=== PATIENT | female | born 1995 | race Caucasian/White ===

== ENCOUNTER 2021-01-23 17:37 | Outpatient (CLI) | payer OTHER, SELFPAY | END 2021-01-23 17:38 | disposition home or self-care (01) | LOC: ANHCOVIDVC 17:37 | PROVIDERS: PCP Physician Assistant | DX: Z23 Encounter for immunization (principal) | CPT/HCPCS: 0001A; 91300 ==

== ENCOUNTER 2021-02-13 17:38 | Outpatient (CLI) | payer OTHER, SELFPAY | END 2021-02-13 17:39 | disposition home or self-care (01) | LOC: ANHCOVIDVC 17:38 | PROVIDERS: PCP Physician Assistant | DX: Z23 Encounter for immunization (principal) | CPT/HCPCS: 0002A; 91300 ==